=== PATIENT | male | born 1955 | race Two or more races ===

== ENCOUNTER 2020-12-25 08:47 | Emergency (ER) | payer MEDICARE, OTHER ==
[~2020-12-25] VITALS: Ht 188 cm; Wt 102.1 kg
[2020-12-25 09:16] VITALS: BP 181/103
[2020-12-25] MEDS ORDERED: HYDROcodone-ACET 10/325MG TAB PO ONE (10:00)
== END 2020-12-25 12:47 | disposition home or self-care (01) ==
LOC: EDBD 08:47 → ER 08:47
DX: M25.462 Effusion, left knee (principal); I10 Essential (primary) hypertension; Z96.652 Presence of left artificial knee joint
CPT/HCPCS: 73562

== ENCOUNTER 2021-05-01 20:37 | Emergency (ER) | payer MEDICARE ==
[~2021-05-01] VITALS: Ht 180.3 cm; Wt 95.3 kg
[2021-05-01 20:38] VITALS: BP 168/112
== END 2021-05-01 22:32 | disposition left against medical advice (07) ==
LOC: ER 20:41
DX: S62.502A Fracture of unspecified phalanx of left thumb, initial encounter for closed fracture (principal); Z53.21 Procedure and treatment not carried out due to patient leaving prior to being seen by health care provider; X58.XXXD Exposure to other specified factors, subsequent encounter

== ENCOUNTER 2021-05-13 04:50 | Emergency (ER) | payer MEDICARE ==
[~2021-05-13] VITALS: Ht 180.3 cm; Wt 102.1 kg
[2021-05-13] MEDS ORDERED: cloNIDine HCL 0.1 MG TAB ONE (05:07)
[2021-05-13] MEDS ORDERED: cloNIDine HCL 0.1 MG TAB PO ONE (05:15)
[2021-05-13] MEDS ORDERED: traMADol HCL 50 MG TAB PO ONE (08:15)
[2021-05-13 08:27] VITALS: BP 148/73
== END 2021-05-13 08:31 | disposition home or self-care (01) ==
LOC: ER 04:50
DX: S62.512A Displaced fracture of proximal phalanx of left thumb, initial encounter for closed fracture (principal); M19.042 Primary osteoarthritis, left hand; I10 Essential (primary) hypertension; Z91.14 Patient's other noncompliance with medication regimen; X58.XXXA Exposure to other specified factors, initial encounter; Y93.89 Activity, other specified; Y92.89 Other specified places as the place of occurrence of the external cause; Y99.8 Other external cause status
CPT/HCPCS: 29125; 73110

== ENCOUNTER 2021-06-13 00:59 | Emergency (ER) | payer MEDICARE ==
[~2021-06-13] VITALS: Ht 180.3 cm; Wt 104.3 kg
[2021-06-13 02:24] VITALS: BP 180/120
[2021-06-13] MEDS ORDERED: cloNIDine HCL 0.1 MG TAB PO ONE (02:30)
[2021-06-13] MEDS ORDERED: KETOROLAC TROMETH 60MG/2ML VIAL IM ONE (02:30)
[2021-06-13] MEDS ORDERED: traMADol HCL 50 MG TAB PO ONE (06:00)
== END 2021-06-13 06:44 | disposition home or self-care (01) ==
LOC: ER 01:01
DX: S62.512A Displaced fracture of proximal phalanx of left thumb, initial encounter for closed fracture (principal); S52.502G Unspecified fracture of the lower end of left radius, subsequent encounter for closed fracture with delayed healing; I10 Essential (primary) hypertension; M19.042 Primary osteoarthritis, left hand; X58.XXXA Exposure to other specified factors, initial encounter; Y93.89 Activity, other specified; Y92.89 Other specified places as the place of occurrence of the external cause; Y99.8 Other external cause status
CPT/HCPCS: 29125; 73130; 96372; 99283; J1885

== ENCOUNTER → 2021-06-23 05:35 | Emergency (ER) | payer MEDICARE ==
[~2021-06-23] VITALS: Ht 180.3 cm; Wt 104.3 kg
[~2021-06-23 05:35] MED LIST: KETOROLAC TROMETH 60MG/2ML VIAL IM ONE
[2021-06-23 05:36] VITALS: BP 177/101
== END | disposition home or self-care (01) ==
LOC: ER 05:35
DX: S52.502G Unspecified fracture of the lower end of left radius, subsequent encounter for closed fracture with delayed healing (principal); S62.512G Displaced fracture of proximal phalanx of left thumb, subsequent encounter for fracture with delayed healing; M19.042 Primary osteoarthritis, left hand; I10 Essential (primary) hypertension; X58.XXXD Exposure to other specified factors, subsequent encounter
CPT/HCPCS: 29125; 73100; 73140; 99284; J1885

== ENCOUNTER 2021-09-13 03:55 | Emergency (ER) | payer MEDICARE ==
[~2021-09-13] VITALS: Ht 180.3 cm; Wt 104.3 kg
[2021-09-13 03:55] VITALS: BP 194/117
[2021-09-13] MEDS ORDERED: cloNIDine HCL 0.1 MG TAB PO ONE (04:45)
== END 2021-09-13 10:00 | disposition left against medical advice (07) ==
LOC: ER 03:55
DX: M79.632 Pain in left forearm (principal); R20.2 Paresthesia of skin; Z53.21 Procedure and treatment not carried out due to patient leaving prior to being seen by health care provider
CPT/HCPCS: 73090

== ENCOUNTER 2021-09-23 04:03 | Emergency (ER) | payer MEDICARE ==
[~2021-09-23] VITALS: Ht 180.3 cm; Wt 107.0 kg
[2021-09-23 04:34] VITALS: BP 181/121
== END 2021-09-23 06:01 | disposition left against medical advice (07) ==
LOC: ER 04:03
DX: M79.632 Pain in left forearm (principal); Z53.21 Procedure and treatment not carried out due to patient leaving prior to being seen by health care provider
CPT/HCPCS: 73090; 73130

== ENCOUNTER 2021-11-22 01:03 | Emergency (ER) | payer MEDICARE ==
[~2021-11-22] VITALS: Ht 180.3 cm; Wt 104.3 kg
[2021-11-22 01:05] VITALS: BP 213/97
== END 2021-11-22 03:11 | disposition left against medical advice (07) ==
LOC: ER 01:07
DX: M79.642 Pain in left hand (principal); Z53.21 Procedure and treatment not carried out due to patient leaving prior to being seen by health care provider

== ENCOUNTER 2022-01-17 07:16 | Emergency (ER) | payer MEDICARE ==
[~2022-01-17] VITALS: Ht 182.9 cm; Wt 104.3 kg
[2022-01-17 07:19] VITALS: BP 218/144
[2022-01-17] MEDS ORDERED: cloNIDine HCL 0.1 MG TAB ONE (07:39)
[2022-01-17] MEDS ORDERED: cloNIDine HCL 0.1 MG TAB PO ONE (08:00)
== END 2022-01-17 09:47 | disposition left against medical advice (07) ==
LOC: ER 07:16
DX: M79.642 Pain in left hand (principal); M79.641 Pain in right hand; Z53.21 Procedure and treatment not carried out due to patient leaving prior to being seen by health care provider

== ENCOUNTER 2022-04-14 00:56 | Emergency (ER) | payer MEDICARE, OTHER ==
[~2022-04-14] VITALS: Ht 182.9 cm; Wt 102.1 kg
[2022-04-14] MEDS ORDERED: KETOROLAC TROMETH 60MG/2ML VIAL IM ONE (04:00)
[2022-04-14 04:32] VITALS: BP 170/94
[2022-04-15] MEDS ORDERED: CYCL-837 PO (09:50)
[2022-04-15] MEDS ORDERED: ACET-1158 PO (09:50)
== END 2022-04-14 04:34 | disposition home or self-care (01) ==
LOC: ER 00:56
DX: B34.9 Viral infection, unspecified (principal); M79.10 Myalgia, unspecified site; I10 Essential (primary) hypertension; R51.9 Headache, unspecified; Z20.822 Contact with and (suspected) exposure to COVID-19
CPT/HCPCS: 36415; 87426; 87804; 96372; 99283; J1885

== ENCOUNTER 2022-04-15 05:21 | Emergency (ER) | payer OTHER ==
[~2022-04-15] VITALS: Ht 182.9 cm; Wt 104.3 kg
[2022-04-15] MEDS ORDERED: MORPHINE SULFATE INJ 2 MG/ml SYRG IM ONE ×2 (07:00→08:30)
[2022-04-15] MEDS ORDERED: ONDANSETRON ODT 4 MG TAB PO ONE (07:00)
[2022-04-15] MEDS ORDERED: IOHEXOL 350 MG/ML 100ML IJ ONE (08:43)
[2022-04-15 08:57] LABS: Basophils # (auto) 0 10 ^3/uL (0-0.2); Basophils % (auto) 0.6 % (0.0-2.0); Eosinophils # (auto) 0 10 ^3/uL (0-0.8); Eosinophils % (auto) 0.5 % (0.0-7.0); Hematocrit 41.8 % (41.0-53.0); Lymphocytes # (auto) 0.7 10 ^3/uL (0.4-5.4); Lymphocytes % (auto) 13.9 % (10.0-50.0); Mean Corpuscular Hemoglobin 29.1 pg (28.0-32.0); Mean Corpuscular Hgb Conc. 33.5 g/dL (32.0-36.0); Mean Corpuscular Volume 86.8 fL (80.0-100.0); Monocytes # (auto) 0.7 10 ^3/uL (0-1.3); Monocytes % (auto) 15.9 % (0.0-12.0); Neutrophils # (auto) 3.2 10 ^3/uL (1.6-8.6); Neutrophils % (auto) 69.1 % (37.0-80.0); Nucleated Red Blood Cells % 0.3 %; Red Blood Cells 4.81 10^6/uL (4.5-5.90); Red Cell Distribution Width 16.3 % (11.8-14.3); White Blood Cell 4.7 10^3/uL (4.4-10.8)
[2022-04-15] MEDS ORDERED: HYDROmorphone HCL 2 MG/ML VL/or syr IV ONE (09:00)
[2022-04-15 09:07] LABS: Partial Thromboplastin Time 31.3 sec (23.6-33.0)
[2022-04-15 09:13] LABS: Albumin 4.2 g/dL (3.4-5.0); Calcium 9.4 mg/dL (8.5-10.1); Potassium 3.4 mmol/L (3.5-5.1)
[2022-04-15 09:16] LABS: BUN/Creatinine Ratio 15.4; Bilirubin, Total 0.3 mg/dL (0.2-1.0); Total Protein 9.8 g/dL (6.4-8.2)
[2022-04-15] MEDS ORDERED: POTASSIUM CHL 20 Meq TABLET PO ONE (09:45)
[2022-04-15] MEDS ORDERED: CYCL-837 PO (09:50)
[2022-04-15] MEDS ORDERED: ACET-1158 PO (09:50)
[2022-04-15 11:16] VITALS: BP 153/103
[2022-04-15 11:43] LABS: Amphetamine Screen, Urine POSITIVE (NEGATIVE); Barbiturate Scree,Urine NEGATIVE (NEGATIVE); Cannabinoid Screen, Urine NEGATIVE (NEGATIVE); Cocaine Screen, Urine NEGATIVE (NEGATIVE)
[2022-04-15 11:50] LABS: Alcohol, Urine < 3.0 mg/dL (0-10); Benzodiazephine Screen, Urine NEGATIVE (NEGATIVE); Opiate Scree,Urine NEGATIVE (NEGATIVE); Phencyclidine Screen, Urine NEGATIVE (NEGATIVE)
[2022-04-15 11:57] LABS: Urine Bacteria NONE SEEN /hpf (None Seen); Urine Blood Negative /uL (Negative); Urine Specific Gravity 1.043 (1.001-1.035); Urine WBC <1 /hpf (0 - 3)
== END 2022-04-15 12:36 | disposition home or self-care (01) ==
LOC: EDBD 05:21 → ER 05:21
DX: S39.012A Strain of muscle, fascia and tendon of lower back, initial encounter (principal); S29.012A Strain of muscle and tendon of back wall of thorax, initial encounter; E86.0 Dehydration; F15.10 Other stimulant abuse, uncomplicated; F12.10 Cannabis abuse, uncomplicated; I10 Essential (primary) hypertension; X58.XXXA Exposure to other specified factors, initial encounter; Y93.89 Activity, other specified; Y92.89 Other specified places as the place of occurrence of the external cause; Y99.8 Other external cause status
CPT/HCPCS: 36415; 71045; 71260; 72100; 74177; 80053; 80307; 81001; 84484; 85025; 85610; 85730; 93005; 96372; 96374; 99285; J1170; J2270; Q0162; Q9967

== ENCOUNTER 2022-04-16 20:34 | Emergency (ER) | payer OTHER ==
[~2022-04-16] VITALS: Ht 167.6 cm; Wt 99.8 kg
[~2022-04-16 20:34] MED LIST changes: +ACET-1158 PO; +CYCL-837 PO; -KETOROLAC TROMETH 60MG/2ML VIAL IM ONE
[2022-04-16 21:20] VITALS: BP 156/89
== END 2022-04-16 23:18 | disposition left against medical advice (07) ==
LOC: EDBD 20:34 → ER 20:47
DX: R05.9 Cough, unspecified (principal); R06.02 Shortness of breath; Z53.21 Procedure and treatment not carried out due to patient leaving prior to being seen by health care provider
CPT/HCPCS: 71045

== ENCOUNTER 2022-04-18 13:40 | Emergency (ER) | payer OTHER ==
[~2022-04-18] VITALS: Ht 162.6 cm; Wt 102.1 kg
[2022-04-18 15:01] VITALS: BP 139/98
[2022-04-18] MEDS ORDERED: cefTRIAXone SOD 1,000 MG VL ONE (15:06)
[2022-04-18] MEDS ORDERED: cefTRIAXone SOD 1,000 MG VL IM ONE (15:15)
[2022-04-18] MEDS ORDERED: ALBUTEROL SULF 2.5 MG/0.5ML(0.5%) NEB SOLN NEB ONE (15:15)
[2022-04-18] MEDS ORDERED: IPRATROPIUM BROM 0.5 MG/2.5ML INH SOL NEB ONE (15:15)
[2022-04-18] MEDS ORDERED: AZIT500T66 PO (15:33)
[2022-04-18] MEDS ORDERED: PROM1SOL4 PO (15:33)
[2022-04-18] MEDS ORDERED: ALBU108A5 IN (15:33)
== END 2022-04-18 15:39 | disposition home or self-care (01) ==
LOC: ER 13:40
DX: J45.909 Unspecified asthma, uncomplicated (principal); J03.90 Acute tonsillitis, unspecified; F12.10 Cannabis abuse, uncomplicated; F15.10 Other stimulant abuse, uncomplicated; I10 Essential (primary) hypertension
CPT/HCPCS: 94640; 96372; 99283; J0696; J7644

== ENCOUNTER 2022-04-19 13:00 | Emergency (ER) | payer OTHER ==
[~2022-04-19] VITALS: Ht 180.3 cm; Wt 104.3 kg
[~2022-04-19 13:00] MED LIST changes: +ALBU108A5 IN; +AZIT500T66 PO; +PROM1SOL4 PO
[2022-04-19 13:04] VITALS: BP 162/117
[2022-04-19 15:37] LABS: Basophils # (auto) 0 10 ^3/uL (0-0.2); Basophils % (auto) 0.5 % (0.0-2.0); Eosinophils # (auto) 0 10 ^3/uL (0-0.8); Eosinophils % (auto) 0.4 % (0.0-7.0); Hemoglobin 14.6 g/dL (13.5-17.5); Lymphocytes # (auto) 0.9 10 ^3/uL (0.4-5.4); Lymphocytes % (auto) 18.8 % (10.0-50.0); Mean Corpuscular Hemoglobin 29.1 pg (28.0-32.0); Mean Corpuscular Volume 85.7 fL (80.0-100.0); Monocytes # (auto) 0.6 10 ^3/uL (0-1.3); Monocytes % (auto) 11.6 % (0.0-12.0); Neutrophils # (auto) 3.3 10 ^3/uL (1.6-8.6); Neutrophils % (auto) 68.7 % (37.0-80.0); Nucleated Red Blood Cells % 0.3 %; Red Blood Cells 5.01 10^6/uL (4.5-5.90); White Blood Cell 4.8 10^3/uL (4.4-10.8)
[2022-04-19 15:57] LABS: Calcium 9.2 mg/dL (8.5-10.1); Potassium 3.5 mmol/L (3.5-5.1)
[2022-04-19 16:00] LABS: Albumin 3.6 g/dL (3.4-5.0); BUN/Creatinine Ratio 15.1
[2022-04-19 16:03] LABS: Bilirubin, Total 0.3 mg/dL (0.2-1.0); Total Protein 8.9 g/dL (6.4-8.2)
== END 2022-04-19 21:43 | disposition left against medical advice (07) ==
LOC: ER 13:00
DX: R06.02 Shortness of breath (principal); R05.9 Cough, unspecified; I10 Essential (primary) hypertension; J45.909 Unspecified asthma, uncomplicated
CPT/HCPCS: 36415; 71045; 80053; 84484; 85025; 93005

== ENCOUNTER 2022-05-22 03:42 | Emergency (ER) | payer OTHER ==
[~2022-05-22] VITALS: Ht 180.3 cm; Wt 104.3 kg
[2022-05-22 04:04] VITALS: BP 134/101
[2022-05-22 04:21] LABS: Basophils # (auto) 0.1 10 ^3/uL (0-0.2); Basophils % (auto) 0.7 % (0.0-2.0); Eosinophils # (auto) 0.2 10 ^3/uL (0-0.8); Eosinophils % (auto) 1.9 % (0.0-7.0); Hematocrit 40.2 % (41.0-53.0); Hemoglobin 13.1 g/dL (13.5-17.5); Lymphocytes # (auto) 1.6 10 ^3/uL (0.4-5.4); Lymphocytes % (auto) 15.4 % (10.0-50.0); Mean Corpuscular Hemoglobin 28.7 pg (28.0-32.0); Mean Corpuscular Hgb Conc. 32.5 g/dL (32.0-36.0); Mean Corpuscular Volume 88.4 fL (80.0-100.0); Monocytes % (auto) 9.2 % (0.0-12.0); Neutrophils # (auto) 7.6 10 ^3/uL (1.6-8.6); Neutrophils % (auto) 72.8 % (37.0-80.0); Red Blood Cells 4.55 10^6/uL (4.5-5.90); Red Cell Distribution Width 16.8 % (11.8-14.3); White Blood Cell 10.4 10^3/uL (4.4-10.8)
[2022-05-22 04:34] LABS: Albumin 4.5 g/dL (3.4-5.0); BUN/Creatinine Ratio 14.6; Calcium 9.7 mg/dL (8.5-10.1); Potassium 3.5 mmol/L (3.5-5.1)
[2022-05-22 04:38] LABS: Bilirubin, Total 0.6 mg/dL (0.2-1.0); Total Protein 8.8 g/dL (6.4-8.2)
== END 2022-05-22 05:50 | disposition home or self-care (01) ==
LOC: ER 03:42
DX: F15.10 Other stimulant abuse, uncomplicated (principal); I10 Essential (primary) hypertension; F12.10 Cannabis abuse, uncomplicated; J45.909 Unspecified asthma, uncomplicated; Z86.73 Personal history of transient ischemic attack (TIA), and cerebral infarction without residual deficits; Z79.2 Long term (current) use of antibiotics; Z79.899 Other long term (current) drug therapy
CPT/HCPCS: 36415; 70450; 71045; 80053; 84484; 85025; 93005

== ENCOUNTER 2022-08-26 06:32 | Inpatient (IN) | payer OTHER ==
[~2022-08-26] VITALS: Ht 180.3 cm; Wt 90.4 kg
[2022-08-26 07:26] LABS: Basophils # (auto) 0 10 ^3/uL (0-0.2); Basophils % (auto) 0.6 % (0.0-2.0); Eosinophils # (auto) 0.2 10 ^3/uL (0-0.8); Eosinophils % (auto) 2.4 % (0.0-7.0); Hematocrit 35.9 % (41.0-53.0); Hemoglobin 11.9 g/dL (13.5-17.5); Lymphocytes # (auto) 0.9 10 ^3/uL (0.4-5.4); Lymphocytes % (auto) 12.6 % (10.0-50.0); Mean Corpuscular Hemoglobin 28.9 pg (28.0-32.0); Mean Corpuscular Hgb Conc. 33.1 g/dL (32.0-36.0); Mean Corpuscular Volume 87.5 fL (80.0-100.0); Monocytes # (auto) 0.8 10 ^3/uL (0-1.3); Monocytes % (auto) 11.5 % (0.0-12.0); Neutrophils # (auto) 5.1 10 ^3/uL (1.6-8.6); Neutrophils % (auto) 72.9 % (37.0-80.0); Red Cell Distribution Width 14.9 % (11.8-14.3)
[2022-08-26 07:44] LABS: Albumin 3.5 g/dL (3.4-5.0); Calcium 8.7 mg/dL (8.5-10.1)
[2022-08-26] MEDS ORDERED: SODIUM CHLORIDE 0.9% 1,000 ML IV ONE (07:45)
[2022-08-26] MEDS ORDERED: SODIUM CHLORIDE 0.9% 500 ML IVB ONE (07:45)
[2022-08-26 07:48] LABS: BUN/Creatinine Ratio 11.7; Bilirubin, Total 0.4 mg/dL (0.2-1.0); Total Protein 7.5 g/dL (6.4-8.2)
[2022-08-26] MEDS ORDERED: MORPHINE SULFATE INJ 2 MG/ml SYRG IV ONE ×2 (08:45→12:15)
[2022-08-26 09:14] LABS: Blood Alcohol < 3.0 mg/dL (0-5); Magnesium 1.8 mg/dL (1.6-2.6)
[2022-08-26 11:54] LABS: Urine Bacteria NONE SEEN /hpf (None Seen); Urine Blood Negative /uL (Negative); Urine Hyaline Cast FEW /lpf (0 - 2); Urine Specific Gravity 1.016 (1.001-1.035); Urine WBC <1 /hpf (0 - 3)
[2022-08-26] MEDS ORDERED: POTASSIUM EFFERVESENT TAB 25 MEQ PO ONE (12:00)
[2022-08-26] MEDS ORDERED: IOHEXOL 350 MG/ML 100ML IJ ONE (12:06)
[2022-08-26 12:08] LABS: Alcohol, Urine < 3.0 mg/dL (0-10); Amphetamine Screen, Urine POSITIVE (NEGATIVE); Barbiturate Scree,Urine NEGATIVE (NEGATIVE); Benzodiazephine Screen, Urine NEGATIVE (NEGATIVE); Cocaine Screen, Urine NEGATIVE (NEGATIVE); Opiate Scree,Urine NEGATIVE (NEGATIVE); Phencyclidine Screen, Urine NEGATIVE (NEGATIVE)
[2022-08-26] MEDS ORDERED: ONDANSETRON HCL 4 MG/2 ML VIAL IV ONE ×2 (12:15→18:00)
[2022-08-26 12:16] LABS: Cannabinoid Screen, Urine POSITIVE (NEGATIVE)
[2022-08-26] MEDS ORDERED: MORPHINE SULFATE 4 MG/ML SYR/VIAL IV ONE (18:00)
[2022-08-26] MEDS ORDERED: MORPHINE SULFATE INJ 2 MG/ml SYRG IV PRN (22:15)
[2022-08-26] MEDS ORDERED: ONDANSETRON HCL 4 MG/2 ML VIAL IV PRN (22:15)
[2022-08-26] MEDS ORDERED: NITROGLYCERIN 0.4 MG SL TAB SL PRN (22:15)
[2022-08-26] MEDS: SODIUM CHLORIDE 0.9% 1,000 ML IV SCH (22:50)
[2022-08-27] MEDS: MORPHINE SULFATE INJ 2 MG/ml SYRG IV PRN ×4 (00:02→12:49)
[2022-08-27 05:10] LABS: Basophils # (auto) 0 10 ^3/uL (0-0.2); Basophils % (auto) 0.5 % (0.0-2.0); Eosinophils # (auto) 0.1 10 ^3/uL (0-0.8); Eosinophils % (auto) 1.7 % (0.0-7.0); Hematocrit 36.7 % (41.0-53.0); Hemoglobin 12.2 g/dL (13.5-17.5); Lymphocytes % (auto) 13.6 % (10.0-50.0); Mean Corpuscular Hemoglobin 28.8 pg (28.0-32.0); Mean Corpuscular Hgb Conc. 33.2 g/dL (32.0-36.0); Mean Corpuscular Volume 86.9 fL (80.0-100.0); Monocytes # (auto) 0.9 10 ^3/uL (0-1.3); Monocytes % (auto) 12.1 % (0.0-12.0); Neutrophils # (auto) 5.4 10 ^3/uL (1.6-8.6); Neutrophils % (auto) 72.1 % (37.0-80.0); Red Blood Cells 4.22 10^6/uL (4.5-5.90); Red Cell Distribution Width 14.9 % (11.8-14.3); White Blood Cell 7.5 10^3/uL (4.4-10.8)
[2022-08-27 05:33] LABS: BUN/Creatinine Ratio 12.7; Calcium 8.8 mg/dL (8.5-10.1); Potassium 3.4 mmol/L (3.5-5.1)
[2022-08-27 05:38] LABS: INR 1.01 (0.9-1.15); Partial Thromboplastin Time 33.8 sec (24.6-33.4)
[2022-08-27] MEDS: SODIUM CHLORIDE 0.9% 1,000 ML IV SCH ×2 (08:15→16:46)
[2022-08-27] MEDS ORDERED: KETOROLAC TROMETH 30 MG/ML 1ML VIAL IV ONE (13:00)
[2022-08-27] MEDS ORDERED: KETOROLAC TROMETH 30 MG/ML 1ML VIAL IV PRN (13:00)
[2022-08-27] MEDS ORDERED: GASTROGRAFIN 120 ML SOL ONE (14:42)
[2022-08-27] MEDS: hydrALAZINE HCL 20 MG/ML VL IV PRN ×2 (16:28→23:06)
[2022-08-27 22:00] VITALS: BP 156/85
[2022-08-28] MEDS: SODIUM CHLORIDE 0.9% 1,000 ML IV SCH (04:15)
[2022-08-28 05:00] VITALS: BP 157/102
[2022-08-28] MEDS: hydrALAZINE HCL 20 MG/ML VL IV PRN ×2 (05:06→17:18)
[2022-08-28 05:30] LABS: Basophils # (auto) 0 10 ^3/uL (0-0.2); Basophils % (auto) 0.5 % (0.0-2.0); Eosinophils # (auto) 0.1 10 ^3/uL (0-0.8); Eosinophils % (auto) 1.8 % (0.0-7.0); Hematocrit 35.6 % (41.0-53.0); Hemoglobin 11.9 g/dL (13.5-17.5); Lymphocytes # (auto) 0.8 10 ^3/uL (0.4-5.4); Lymphocytes % (auto) 11.7 % (10.0-50.0); Mean Corpuscular Hemoglobin 28.9 pg (28.0-32.0); Mean Corpuscular Hgb Conc. 33.5 g/dL (32.0-36.0); Mean Corpuscular Volume 86.4 fL (80.0-100.0); Monocytes # (auto) 0.7 10 ^3/uL (0-1.3); Monocytes % (auto) 10.5 % (0.0-12.0); Neutrophils # (auto) 5.3 10 ^3/uL (1.6-8.6); Neutrophils % (auto) 75.5 % (37.0-80.0); Red Blood Cells 4.12 10^6/uL (4.5-5.90)
[2022-08-28 05:44] LABS: Potassium 3.5 mmol/L (3.5-5.1)
[2022-08-28 05:48] LABS: BUN/Creatinine Ratio 14.9; Calcium 9.4 mg/dL (8.5-10.1)
[2022-08-28 09:00] VITALS: BP_SYST 152; BP_SYST 153; BP_DIAS 102; BP_DIAS 99
[2022-08-28] MEDS: PANTOPRAZOLE 40 MG/10 ML VIAL INJ IV SCH (09:59)
[2022-08-28] MEDS ORDERED: ASPirin 81 mg TAB PO ONE (12:30)
[2022-08-28] MEDS: LISINOPRIL 5 MG TAB PO SCH (12:35)
[2022-08-28] MEDS: METOPROLOL SUCCINATE XL 50 MG TAB PO SCH (12:39)
[2022-08-28] MEDS: KETOROLAC TROMETH 30 MG/ML 1ML VIAL IV PRN (18:08)
[2022-08-28] MEDS: ATORVASTATIN 20 MG TAB PO SCH (21:43)
[2022-08-28] MEDS ORDERED: MAGNESIUM OXIDE 400 MG TAB PO ONE (22:00)
[2022-08-28 22:15] VITALS: BP 100/34
[2022-08-29] VITALS (7 sets, daily range): BP systolic 136–184; BP diastolic 70–99
[2022-08-29] MEDS: KETOROLAC TROMETH 30 MG/ML 1ML VIAL IV PRN ×2 (03:50→21:43)
[2022-08-29 06:16] LABS: Cholesterol 116 mg/dL (< 200); HDL Cholesterol 44 mg/dL (40-59); LDL Cholesterol 65 mg/dL (< 100); Triglycerides 46 mg/dL (< 150)
[2022-08-29] MEDS: PANTOPRAZOLE 40 MG/10 ML VIAL INJ IV SCH (10:03)
[2022-08-29] MEDS: DAPAGLIFLOZIN 5 MG TAB PO SCH (10:04)
[2022-08-29] MEDS: ASPirin 81 mg TAB PO SCH (10:04)
[2022-08-29] MEDS: METOPROLOL SUCCINATE XL 50 MG TAB PO SCH (10:06)
[2022-08-29] MEDS: LISINOPRIL 5 MG TAB PO SCH (10:06)
[2022-08-29] MEDS: hydrALAZINE HCL 20 MG/ML VL IV PRN (16:50)
[2022-08-29] MEDS: ATORVASTATIN 20 MG TAB PO SCH (21:43)
[2022-08-29] MEDS: MORPHINE SULFATE INJ 2 MG/ml SYRG IV PRN (23:23)
[2022-08-30 05:00] VITALS: BP 144/90
[2022-08-30] MEDS: KETOROLAC TROMETH 30 MG/ML 1ML VIAL IV PRN (06:01)
[2022-08-30] MEDS: hydrALAZINE HCL 20 MG/ML VL IV PRN (06:01)
[2022-08-30 06:56] VITALS: BP 133/75
[2022-08-30 08:00] VITALS: BP 137/69
[2022-08-30 08:42] VITALS: BP 137/69
[2022-08-30] MEDS: PANTOPRAZOLE 40 MG/10 ML VIAL INJ IV SCH (09:49)
[2022-08-30] MEDS: ASPirin 81 mg TAB PO SCH (09:50)
[2022-08-30] MEDS: DAPAGLIFLOZIN 5 MG TAB PO SCH (09:50)
[2022-08-30] MEDS: LISINOPRIL 5 MG TAB PO SCH (09:51)
[2022-08-30] MEDS: METOPROLOL SUCCINATE XL 50 MG TAB PO SCH (09:51)
[2022-08-30 12:34] VITALS: BP 168/76
== END 2022-08-30 14:08 | disposition home or self-care (01) | DRG 291 ==
LOC: ER 06:32 → TELE 22:08 → TELE-WESTW 08-27 20:40 → WEST WING 08-28 00:10
PROVIDERS: ADMIT Nurse Practitioner Family; ATTEND Nurse Practitioner Acute Care
PROC: 0D9670Z Drainage of Stomach with Drainage Device, Via Natural or Artificial Opening (ICD-10-PCS; principal; 2022-08-26)
DX: I11.0 Hypertensive heart disease with heart failure (principal); G92.8 Other toxic encephalopathy; I50.21 Acute systolic (congestive) heart failure; E87.6 Hypokalemia; R73.9 Hyperglycemia, unspecified; K44.9 Diaphragmatic hernia without obstruction or gangrene; F15.90 Other stimulant use, unspecified, uncomplicated; E78.5 Hyperlipidemia, unspecified; Z20.822 Contact with and (suspected) exposure to COVID-19; J45.909 Unspecified asthma, uncomplicated; Z79.899 Other long term (current) drug therapy; Z86.73 Personal history of transient ischemic attack (TIA), and cerebral infarction without residual deficits
CPT/HCPCS: 36415; 70450; 71045; 71275; 74246; 80048; 80053; 80061; 80307; 80320; 81001; 83036; 83735; 83880; 84484; 85025; 85379; 85610; 85730; 87426; 93005; 93306; 96361; 96374; 96375; 96376; C9113; G0378; J1885; J2405